=== PATIENT | male | born 1950 | race Caucasian/White ===

== ENCOUNTER 2018-01-08 21:15 | Inpatient (IN) | payer MEDICARE, BC ==
[~2018-01-08] VITALS: Ht 182.9 cm; Wt 88.0 kg
--- NOTE | 2018-01-08 22:22 | NUR ---
MEDICALLY CLEARED BY DR CAMERON.
--- NOTE | 2018-01-08 22:23 | NUR ---
CALLED AMINAH ALEX TO EVAL PATIENT. ETA 30MIN
[2018-01-08] MEDS ORDERED: ONDA2VIA IJ (22:44)
[2018-01-08] MEDS ORDERED: VALS40TA4 PO (22:44)
[2018-01-08] MEDS ORDERED: ACET325T53 PO (22:44)
[2018-01-08] MEDS ORDERED: CLON0.5T12 PO (22:44)
[2018-01-08] MEDS ORDERED: HYDR-3974 PO (22:44)
[2018-01-08] MEDS ORDERED: HYDR-4075 PO (22:44)
[2018-01-08] MEDS ORDERED: HEPA0.5D3 IJ (22:44)
[2018-01-08] MEDS ORDERED: LEVE500T20 PO (22:44)
[2018-01-08] MEDS ORDERED: LACT1CAP39 PO (22:44)
[2018-01-08] MEDS ORDERED: ASPI-605 PO (22:44)
[2018-01-08] MEDS ORDERED: TRAZ-182 PO (22:44)
[2018-01-08] MEDS ORDERED: ATOR10TA PO (22:44)
[2018-01-08] MEDS ORDERED: ATEN50TA PO (22:44)
[2018-01-08] MEDS ORDERED: ESCI10TA PO (22:44)
[2018-01-08] MEDS ORDERED: LORA0.5T PO (22:44)
[2018-01-08] MEDS ORDERED: PANT40TA4 PO (22:44)
[2018-01-08] MEDS ORDERED: LOPE2TAB25 PO (22:44)
--- NOTE | 2018-01-08 23:05 | NUR ---
AMINAH ALEX FROM PET TEAM HERE TO EVAL PATIENT
--- NOTE | 2018-01-08 23:10 | NUR ---
PLACED ON 5150 HOLD FOR GD BY AMINAH ALEX [facility]
--- NOTE | 2018-01-08 23:28 | NUR ---
[facility]SA SERVILLANCE OBTAIN AND SENT TO LAB. BELONGING LIST COMPLETED
--- NOTE | 2018-01-08 23:58 | NUR ---
TRANSFERED TO MHU VIA WHEELCHAIR WITH NO DISTRESS NOTED
[2018-01-09] VITALS: BP 131/77
[2018-01-09] MEDS ORDERED: TEMAZEPAM 7.5 MG CAPSULE PO PRN (01:00)
[2018-01-09] MEDS ORDERED: ACETAMINOPHEN 325 MG TABLET PO PRN ×2 (01:00→10:30)
[2018-01-09] MEDS ORDERED: MAGNESIUM HYDROXIDE 30 ML LIQUID UDC PO PRN ×2 (01:00→10:30)
[2018-01-09] MEDS ORDERED: MAG HYDROX/AL HYDROX/SIMETH 30 ML LIQUID UDC PO PRN (01:00)
--- NOTE | 2018-01-09 02:16 | NUR ---
ADMISSION NOTES: 67 Y.O. MALE BROUGHT TO MHU FROM ER VIA WHEELCHAIR, ACCOMPANIED BY ER STAFF, Pt ON A 5150 HOLD FOR GRAVE DISABILITY. 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 Pt CONTINUES TO BE DEPRESSED AND UNABLE TO RECEIVE CARE FROM AND CAREGIVER AT HOME.RN CONCURS WITH THE HOLD. ADVISEMENT AND PATIENT RIGHTS HANDBOOK GIVEN. UPON FACE TO FACE ASSESSMENT, Pt APPEARS TO REFLECT SOME DETAILS WRITTEN ON THE HOLD. Pt IS A/O X 3, AND COOPERATIVE WITH ASSESSMENT. Pt IS NOTED SLIGHTLY LETHARGIC DUE TO BEING GIVEN ATIVAN PO PRN AT THE PREVIOUS HOSPITAL HE WAS ADMITTED IN PRIOR TO TRANSFERRING TO [facility]. SLIGHT CONFUSION IS NOTED, Pt IS AWARE OF THE SITUATION BUT FORGETFUL AT TIMES AND SPACES OUT AT TIMES DURING CONVERSATION. Pt REPORTS THAT HE IS FEELING DEPRESSED BUT UNABLE TO RATE DEPRESSION ON A 0-10 RATING SCALE. Pt DENIES SUICIDAL IDEATION, DENIES ANY AUDITORY OR VISUAL HALLUCINATIONS. Pt AGREED TO CONTRACT FOR SAFETY INSIDE THE HOSPITAL. Pt REPORTS BEING TIRED AND SLEEP, STATING, "THEY'VE BEEN PUTTING ME ON SO MUCH MEDICATIONS SO I CAN BARELY STAND AND WALK. I FEEL TIRED ALL THE TIME." Pt CONFIRMS THE UNINTENTIONAL OVERDOSE IN OCTOBER 2017, BUT WAS AMBIVALENT WITH HIS RESPONSES WHEN ASKED REGARDING THE DETAILS OF THE EVENT. Pt EXHIBITS FLAT AFFECT AND POOR EYE CONTACT, AND IS SOMEWHAT CIRCUMSTANTIAL IN THOUGHT PROCESS. Pt STATES THAT HE IS WILLING TO ACCEPT TREATMENT, AND WILL PARTICIPATE WITH THE PROGRAM IN MHU. Pt APPEARS TO BE UNKEMPT IN APPEARANCE, BUT SKIN IS INTACT. Pt GAVE VERBAL PERMISSION TO CALL HIS REGARDING DETAILS OF HIS HOSPITALIZATION. WAS PRESENT IN THE EMERGENCY ROOM WITH Pt PRIOR TO BEING ADMITTED TO MHU. NURSE ATTEMPTED TO CALL , NO RESPONSE AND UNABLE TO LEAVE VOICEMAIL. WILL ATTEMPT TO CALL AGAIN AT A MORE APPROPRIATE TIME. DR. SNIDER AND DR. BRAVO NOTIFIED OF ADMISSION, ORDERS RECEIVED. Pt ORIENTED TO UNIT, AND EDUCATED ON UNIT RULES. NO CONTRABANDS OR BELONGINGS DURING ADMISSION. VITAL SIGNS STABLE, DENIES PAIN, NO PRN MEDS GIVEN. Pt ASSISTED BY NURSING STAFF TO USE THE BATHROOM DUE TO SLIGHTLY UNSTEADY GAIT, ASSISTED TO BED. Pt IS SLEEPING, NO AGGRESSIVE BEHAVIORS NOTED.
[2018-01-09 06:25] VITALS: BP 128/81
--- NOTE | 2018-01-09 06:37 | NUR ---
Pt SLEPT UNINTERRUPTED, WOKE UP THIS MORNING AND AGREED TO TAKE A SHOWER. Pt WAS WALKING AROUND THE UNIT WHEN HE REPORTED FEELING DIZZY. Pt STATED, "I CAN'T BELIEVE HOW DIZZY I AM RIGHT NOW." NURSE ASSISTED Pt BACK TO HIS ROOM AND TO HIS BED TO PREVENT ANY INJURY TO THE Pt. VITAL SIGNS WERE TAKEN, BLOOD PRESSURE WAS NORMAL AT 128/81, BUT DECREASED HEART RATE OF 48. ASSESSED Pt FOR MORE S/S, Pt ONLY COMPLAINED OF DIZZINESS. DENIES CHEST PAINS, DENIES SHORTNESS OF BREATH, LEVEL OF CONSCIOUSNESS STILL THE SAME BASELINE DURING ADMISSION. HEAD OF BED AND LEGS BOTH ELEVATED, GIVEN WATER AND APPLE JUICE. NOTIFIED CHARGE NURSE, WILL ENDORSE TO DAY SHIFT NURSE TO NOTIFY CITY ADMINISTRATOR FOR ANY FURTHER ORDERS.
[2018-01-09 07:30] VITALS: BP 120/84
[2018-01-09] MEDS ORDERED: Medication Not On Formulary EA (Loperamide Hcl (Loperamide) 2 MG) PO PRN (10:30)
[2018-01-09] MEDS ORDERED: HYDROCODONE/APAP 5-325MG TABLET PO PRN (10:30)
[2018-01-09] MEDS ORDERED: Z GUARD REMEDY PASTE 57 GM TUBE TOP PRN (10:30)
[2018-01-09] MEDS ORDERED: ONDANSETRON HCL 4 MG TABLET PO PRN (10:30)
[2018-01-09] MEDS ORDERED: hydrALAZINE HCL 10 MG TABLET PO PRN (10:30)
[2018-01-09] MEDS: DULOXETINE 30 MG CAPSULE.DR PO SCH ×2 (12:11→17:22)
[2018-01-09] MEDS: CLONAZEPAM 0.5 MG TABLET PO SCH ×2 (12:11→17:22)
--- NOTE | 2018-01-09 16:30 | NUR ---
PT COMPLAINED OF URINE RETENTION AND UNABLE TO PEE, BLADDER SCAN DONE. 413 ML NOTICED PT ENCOURAGED TO TRY AND USE THE BATHROOM , PASSED BLADDER RE-SCANNED 110ML IN BLADDER. PT WAS INSTRUCTED TO TRY TO PASS URINE/ EMPTY BLADDER AND IF ANY DISCOMFORTS OCCUR TO INFORM THE NURSE. PT TO BE FOLLOWED AND MONITORED
[2018-01-09 17:14] VITALS: BP 128/85
[2018-01-09] MEDS: LEVETIRACETAM 500 MG TABLET PO SCH (17:22)
[2018-01-09] MEDS: ACIDOPHILUS/BULGARICUS CHEW TAB PO SCH (17:22)
[2018-01-09 20:19] VITALS: BP 141/85
[2018-01-09] MEDS: ATORVASTATIN 10 MG TABLET PO SCH (20:49)
[2018-01-09] MEDS: HEPARIN SODIUM,PORCINE 5,000 UNITS/ML VIAL SQ SCH (20:51)
[2018-01-10] MEDS: PANTOPRAZOLE SODIUM 40 MG TABLET.DR PO SCH (06:02)
[2018-01-10 06:45] VITALS: BP 154/81
--- NOTE | 2018-01-10 06:45 | NUR ---
Pt slept comfortably at night, total of 8.15 hrs. Meds given as ordered. No acute distress noted. No c/o pain or discomfort. This morning, pt has elevated BP 154/81, HR 50. Apresoline PRN not given because there is no parameters and HR is low. Asymptomatic at this time, no c/o dizziness. Will notify MD. Safety measures maintained. Continue to monitor. Will endorse to day shift RN.
[2018-01-10 07:07] LABS: BASOPHILS # (AUTO) 0.1 K/uL (0.0-8.0); EOSINOPHILS # (AUTO) 0.3 K/uL (0.0-0.7); EOSINOPHILS % (AUTO) 4.5 % (0.0-7.0); HEMATOCRIT 44.4 % (36.7-47.1); HEMOGLOBIN 15.2 g/dL (12.5-16.3); LYMPHOCYTES # (AUTO) 1.8 K/uL (20.0-40.0); LYMPHOCYTES % (AUTO) 24.7 % (20.5-51.5); MEAN CORPUSCULAR HEMOGLOBIN 31.3 uug (23.8-33.4); MEAN CORPUSCULAR HGB CONC 34 g/dL (32.5-36.3); MEAN CORPUSCULAR VOLUME 91.4 fL (73.0-96.2); MONOCYTES # (AUTO) 0.5 K/uL (2.0-10.0); MONOCYTES % (AUTO) 6.7 % (0.0-11.0); NEUTROPHILS # (AUTO) 4.6 K/uL (1.8-8.9); NEUTROPHILS % (AUTO) 63.1 % (38.5-71.5); PLATELET COUNT (AUTO) 273 K/uL (152-348); RED BLOOD CELL COUNT(AUTO) 4.85 MIL/uL (4.06-5.63); WHITE BLOOD COUNT (AUTO) 7.3 K/uL (3.6-10.2)
[2018-01-10 07:26] LABS: CREATININE 1.3 mg/dL (0.6-1.3); MAGNESIUM 1.7 mg/dL (1.8-2.4); PHOSPHOROUS 3.7 mg/dL (2.5-4.9); POTASSIUM 4.9 mmol/L (3.5-5.1)
[2018-01-10 07:30] VITALS: BP 150/84
[2018-01-10] MEDS: LEVETIRACETAM 500 MG TABLET PO SCH ×2 (08:29→16:56)
[2018-01-10] MEDS: DULOXETINE 30 MG CAPSULE.DR PO SCH ×2 (08:29→16:57)
[2018-01-10] MEDS: ACIDOPHILUS/BULGARICUS CHEW TAB PO SCH ×2 (08:30→16:57)
[2018-01-10] MEDS: VALSARTAN 40 MG TABLET PO SCH (08:30)
[2018-01-10] MEDS: CLONAZEPAM 0.5 MG TABLET PO SCH ×2 (08:30→16:57)
[2018-01-10] MEDS: ASPIRIN EC 81 MG TABLET.DR PO SCH (08:30)
[2018-01-10] MEDS: HEPARIN SODIUM,PORCINE 5,000 UNITS/ML VIAL SQ SCH ×2 (08:32→20:29)
[2018-01-10] MEDS ORDERED: ATENOLOL 50 MG TABLET PO SCH (09:00)
--- NOTE | 2018-01-10 14:46 | NUR ---
Initial Discharge Instructions: Patient currently resides at home with his and adult son [[address], [place] [address]; [phone]]. Per pt, he would like to return home upon discharge. Spoke with patient's , Lucy ([phone]) who states she is hopeful that the patient can return home with Home Health when ready for discharge. SW will continue to collaborate with pt, family, and MD regarding most appropriate discharge plans for this patient. SW will form a safe and proper discharge plan.
[2018-01-10 15:00] VITALS: BP 143/80
[2018-01-10] MEDS ORDERED: MAGNESIUM OXIDE 400 MG TABLET PO ONE (15:30)
[2018-01-10] MEDS: busPIRone 5 MG TABLET PO SCH (17:09)
--- NOTE | 2018-01-10 17:09 | NUR ---
Gps/Assembler [employer]- Complained he has not urinated since this am. Claimed he ate lunch , refused breakfast, encouraged to drink fluids, ,compliant with his medications . No bladder distention noted, no bladder discomfort, encouraged to go to the bathroom to void, drink plenty of water.Verbalized nothing will help him when medications reviewed, motivation poor.
[2018-01-10 20:00] VITALS: BP 125/89
[2018-01-10] MEDS: ATORVASTATIN 10 MG TABLET PO SCH (20:28)
[2018-01-10] MEDS: risperiDONE-M 0.5 MG TAB.RAPDIS PO SCH (20:28)
--- NOTE | 2018-01-10 20:30 | NUR ---
PT'S A/A/O X2-3,ON BED REST COMFORTABLY,DENIED OF PAIN.PT COMPLIANT WITH MEDICATIONS WELL.OFFERED PT FOR SOME SANDWICH,PT STATED THAT"I JUST HAD IT".KEPT COMFORT.CONTINUED MONITORING TO PT.
--- NOTE | 2018-01-10 21:30 | NUR ---
PT'S COMFORTABLE ON BED,DENIED OF PAIN OR ANY DISCOMFORT.ENCOURAGED PT TO URINATE AT THIS TIME DUE TO PT'S UNABLE TO REMEMBER WHEN IT'S THE LAST TIME OF URINATION.OFFERED A URINAL TO PT,PT'S UNABLE TO URINATE ON BED OR AT THE BEDSIDE.ASSISTED PT TO BATHROOM,STEADY GAIT NOTED.TOOK 15 MINUTES FOR PT TO URINATED ~ 500 ML OF URINE.OFFERED CRANBERRY JUICE TO PT AND HE TOLERATED WELL NOTED.CLOSELY MONITORING TO PT.BED ALARM'S ON.
--- NOTE | 2018-01-11 06:20 | NUR ---
Encouraged pt to go to bathroom for urination,pt's cooperative and able to urinate x1.pt refused to take a shower at this time,stated to me and charge nurse that"I'm not ready yet,will do it later".kept comfort to pt.no distress noted in the shift.pt remained free from injury and able to sleep for 10 hours.
[2018-01-11] MEDS: PANTOPRAZOLE SODIUM 40 MG TABLET.DR PO SCH (06:39)
[2018-01-11 07:30] VITALS: BP 120/81
[2018-01-11] MEDS: DULOXETINE 30 MG CAPSULE.DR PO SCH (08:18)
[2018-01-11] MEDS: busPIRone 5 MG TABLET PO SCH ×3 (08:18→17:48)
[2018-01-11] MEDS: LEVETIRACETAM 500 MG TABLET PO SCH ×2 (08:18→17:48)
[2018-01-11] MEDS: ACIDOPHILUS/BULGARICUS CHEW TAB PO SCH ×2 (08:18→17:48)
[2018-01-11] MEDS: CLONAZEPAM 0.5 MG TABLET PO SCH ×2 (08:18→20:01)
[2018-01-11] MEDS: ASPIRIN EC 81 MG TABLET.DR PO SCH (08:18)
[2018-01-11] MEDS: VALSARTAN 40 MG TABLET PO SCH (08:19)
[2018-01-11] MEDS: HEPARIN SODIUM,PORCINE 5,000 UNITS/ML VIAL SQ SCH ×2 (08:20→20:00)
--- NOTE | 2018-01-11 12:01 | NUR ---
GPS/RN- patient voided at this time, noted in bathroom , unable to collect urine at this time patient had already voided in toilet.
[2018-01-11] MEDS: SERTRALINE HCL 50 MG TABLET PO SCH (12:19)
[2018-01-11 16:27] VITALS: BP 120/74
[2018-01-11] MEDS: risperiDONE-M 0.5 MG TAB.RAPDIS PO SCH (20:01)
[2018-01-11] MEDS: ATORVASTATIN 10 MG TABLET PO SCH (20:01)
[2018-01-11 20:30] VITALS: BP 122/80
[2018-01-12] MEDS: PANTOPRAZOLE SODIUM 40 MG TABLET.DR PO SCH (06:48)
[2018-01-12 07:30] VITALS: BP 135/79
[2018-01-12] MEDS ORDERED: LOPERAMIDE HCL 2 MG CAPSULE PO PRN (07:45)
[2018-01-12] MEDS: LOPERAMIDE HCL 2 MG CAPSULE PO PRN ×2 (08:39→13:51)
[2018-01-12] MEDS: ASPIRIN EC 81 MG TABLET.DR PO SCH (08:39)
[2018-01-12] MEDS: DULOXETINE 30 MG CAPSULE.DR PO SCH (08:39)
[2018-01-12] MEDS: ACIDOPHILUS/BULGARICUS CHEW TAB PO SCH ×2 (08:39→16:20)
[2018-01-12] MEDS: busPIRone 5 MG TABLET PO SCH ×3 (08:39→16:20)
[2018-01-12] MEDS: HEPARIN SODIUM,PORCINE 5,000 UNITS/ML VIAL SQ SCH ×2 (08:40→21:26)
[2018-01-12] MEDS: VALSARTAN 40 MG TABLET PO SCH (08:44)
[2018-01-12] MEDS: LEVETIRACETAM 500 MG TABLET PO SCH ×2 (08:44→16:20)
[2018-01-12] MEDS: LORAZEPAM 0.5 MG TABLET PO PRN (11:42)
[2018-01-12] MEDS: SERTRALINE HCL 50 MG TABLET PO SCH (12:34)
--- NOTE | 2018-01-12 15:00 | NUR ---
Patient complaining of diarrhea as per medical technicians. SENIOR SUPPORT ANALYST Alistair ordered imodium 2mg PRN every 4hrs. Urine collected, sent to laboratory. awaiting result. Combative and agitation noted. Ativan 0.5 mg PRN given with good effect. will continue monitor
[2018-01-12 16:07] LABS: *BILIRUBIN,URIN NEGATIVE (NEGATIVE); *BLOOD, URINE NEGATIVE (NEGATIVE); *CLARITY,URINE CLEAR (CLEAR); *COLOR,URINE YELLOW (YELLOW); *KETONES,URINE NEGATIVE (NEGATIVE); *PROTEIN,URINE TRACE (NEGATIVE); *UROBILINOGEN,URINE 0.2 E.U./dl (NORMAL); LEUKOCYTE ESTERASE ,URINE NEGATIVE (NEGATIVE); NITRITE, URINE NEGATIVE (NEGATIVE); UGLUCOSE NEGATIVE (NEGATIVE)
[2018-01-12 16:33] LABS: MUCUS,URINE MODERATE /LPF (0-FEW); WBC,URINE 0-3 /HPF (0-3)
[2018-01-12 16:54] VITALS: BP 94/57
[2018-01-12 20:00] VITALS: BP 99/65
[2018-01-12] MEDS: ATORVASTATIN 10 MG TABLET PO SCH (21:23)
[2018-01-12] MEDS: CLONAZEPAM 0.5 MG TABLET PO SCH (21:23)
[2018-01-12] MEDS: risperiDONE-M 0.5 MG TAB.RAPDIS PO SCH (21:23)
[2018-01-13] MEDS: PANTOPRAZOLE SODIUM 40 MG TABLET.DR PO SCH (06:26)
[2018-01-13 07:30] VITALS: BP 124/71
[2018-01-13] MEDS: HYDROCORTISONE 1% RECTAL CREAM 28.35 GM TUBE RC SCH ×2 (09:00→17:00)
[2018-01-13] MEDS: VALSARTAN 40 MG TABLET PO SCH (10:07)
[2018-01-13] MEDS: LEVETIRACETAM 500 MG TABLET PO SCH ×2 (10:07→17:44)
[2018-01-13] MEDS: busPIRone 5 MG TABLET PO SCH ×4 (10:07→17:44)
[2018-01-13] MEDS: ACIDOPHILUS/BULGARICUS CHEW TAB PO SCH ×2 (10:07→17:44)
[2018-01-13] MEDS: ASPIRIN EC 81 MG TABLET.DR PO SCH (10:07)
[2018-01-13] MEDS: DULOXETINE 30 MG CAPSULE.DR PO SCH (10:07)
[2018-01-13] MEDS: HEPARIN SODIUM,PORCINE 5,000 UNITS/ML VIAL SQ SCH ×2 (10:15→20:19)
[2018-01-13] MEDS: SERTRALINE HCL 50 MG TABLET PO SCH (13:16)
[2018-01-13 16:45] VITALS: BP 112/68
--- NOTE | 2018-01-13 18:54 | NUR ---
GPS/RN- [address]00 [address] HELD, PATIENT LETHARGIC BUT AROUSABLE.
[2018-01-13 19:30] VITALS: BP 109/70
[2018-01-13] MEDS: ATORVASTATIN 10 MG TABLET PO SCH (20:18)
[2018-01-13] MEDS: risperiDONE-M 0.5 MG TAB.RAPDIS PO SCH (20:19)
[2018-01-13] MEDS: CLONAZEPAM 0.5 MG TABLET PO SCH (20:19)
[2018-01-14] MEDS: PANTOPRAZOLE SODIUM 40 MG TABLET.DR PO SCH (06:18)
--- NOTE | 2018-01-14 06:49 | NUR ---
Pt stated had BM x 1 last night, pt was seen coming from bathroom twice during shift. Pt is ambulatory. Compliant with meds. Slept 8.50 hrs. Refused am shower. Safety measures rendered.
[2018-01-14 07:30] VITALS: BP 118/73
[2018-01-14] MEDS: busPIRone 5 MG TABLET PO SCH ×2 (09:00→17:00)
[2018-01-14] MEDS: DULOXETINE 30 MG CAPSULE.DR PO SCH ×2 (09:00→20:27)
[2018-01-14] MEDS: HYDROCORTISONE 1% RECTAL CREAM 28.35 GM TUBE RC SCH ×2 (09:00→16:51)
[2018-01-14] MEDS: LEVETIRACETAM 500 MG TABLET PO SCH ×2 (09:59→17:03)
[2018-01-14] MEDS: ACIDOPHILUS/BULGARICUS CHEW TAB PO SCH ×2 (09:59→17:03)
[2018-01-14] MEDS: ASPIRIN EC 81 MG TABLET.DR PO SCH (09:59)
--- NOTE | 2018-01-14 10:19 | NUR ---
GPS/RN- Awilda held. patient complaining of dizziness, lethargic. vitals stable held Joanne at this time as well
[2018-01-14] MEDS: VALSARTAN 40 MG TABLET PO SCH (10:20)
[2018-01-14] MEDS: HEPARIN SODIUM,PORCINE 5,000 UNITS/ML VIAL SQ SCH ×2 (11:08→20:33)
[2018-01-14 16:00] VITALS: BP 122/66
[2018-01-14] MEDS: SERTRALINE HCL 50 MG TABLET PO SCH (17:03)
[2018-01-14 19:30] VITALS: BP 106/74
[2018-01-14] MEDS: ATORVASTATIN 10 MG TABLET PO SCH (20:27)
--- NOTE | 2018-01-14 22:00 | NUR ---
received to care, lying in bed, isolative, but pleasant upon approach. denies SI, or desire to harm self. no interactions with peers, but is able to make needs known. compliant with medications and staff direction. as of 2199, he appears to be asleep. no distress noted.
--- NOTE | 2018-01-15 06:47 | NUR ---
slept 10.5 hours, total. continues to sleep. was observed several times during the night in the bathroom. no distress noted.
[2018-01-15] MEDS: PANTOPRAZOLE SODIUM 40 MG TABLET.DR PO SCH (07:02)
[2018-01-15 07:30] VITALS: BP 149/83
[2018-01-15 07:39] LABS: BASOPHILS # (AUTO) 0.1 K/uL (0.0-8.0); BASOPHILS % (AUTO) 0.6 % (0.0-2.0); EOSINOPHILS # (AUTO) 0.3 K/uL (0.0-0.7); EOSINOPHILS % (AUTO) 3.8 % (0.0-7.0); HEMATOCRIT 47.4 % (36.7-47.1); HEMOGLOBIN 16.1 g/dL (12.5-16.3); LYMPHOCYTES # (AUTO) 2.4 K/uL (20.0-40.0); LYMPHOCYTES % (AUTO) 26.6 % (20.5-51.5); MEAN CORPUSCULAR HEMOGLOBIN 31.4 uug (23.8-33.4); MEAN CORPUSCULAR HGB CONC 34 g/dL (32.5-36.3); MEAN CORPUSCULAR VOLUME 92.3 fL (73.0-96.2); MONOCYTES # (AUTO) 0.5 K/uL (2.0-10.0); MONOCYTES % (AUTO) 6.2 % (0.0-11.0); NEUTROPHILS # (AUTO) 5.6 K/uL (1.8-8.9); NEUTROPHILS % (AUTO) 62.8 % (38.5-71.5); PLATELET COUNT (AUTO) 275 K/uL (152-348); RED BLOOD CELL COUNT(AUTO) 5.14 MIL/uL (4.06-5.63); WHITE BLOOD COUNT (AUTO) 8.9 K/uL (3.6-10.2)
[2018-01-15 07:43] LABS: CREATININE 1.4 mg/dL (0.6-1.3); POTASSIUM 4.9 mmol/L (3.5-5.1)
[2018-01-15] MEDS: ACIDOPHILUS/BULGARICUS CHEW TAB PO SCH ×2 (08:51→16:39)
[2018-01-15] MEDS: ASPIRIN EC 81 MG TABLET.DR PO SCH (08:51)
[2018-01-15] MEDS: busPIRone 5 MG TABLET PO SCH ×2 (08:52→16:39)
[2018-01-15] MEDS: LEVETIRACETAM 500 MG TABLET PO SCH ×2 (08:52→16:38)
[2018-01-15] MEDS: VALSARTAN 40 MG TABLET PO SCH (08:52)
[2018-01-15] MEDS: HEPARIN SODIUM,PORCINE 5,000 UNITS/ML VIAL SQ SCH (08:54)
[2018-01-15] MEDS: HYDROCORTISONE 1% RECTAL CREAM 28.35 GM TUBE RC SCH ×2 (09:00→16:39)
[2018-01-15 16:24] VITALS: BP 114/61
[2018-01-15] MEDS: SERTRALINE HCL 50 MG TABLET PO SCH (16:39)
--- NOTE | 2018-01-15 19:24 | NUR ---
pt stable throughout the day. pt seen by manpower development advisor angelo and had heparin and mom stopped due to verbalizign diarrhea. no diarrhea seen throughout the shift. pt participated in therapies and shows awareness of depression. pt denies any statement of SI. pt continues to stay in room because patient states he likes to be in the room. will endorse to shift coordinator nurse.
[2018-01-15 20:10] VITALS: BP 132/80
[2018-01-15] MEDS: DULOXETINE 30 MG CAPSULE.DR PO SCH (20:53)
[2018-01-15] MEDS: ATORVASTATIN 10 MG TABLET PO SCH (20:53)
--- NOTE | 2018-01-15 22:00 | NUR ---
received to care, lying in bed, isolative, but pleasant upon approach. denies SI, or desire to harm self. no interactions with peers, but is able to make needs known. compliant with medications and staff direction. as of 2199, he remains awake. no distress noted.
[2018-01-15] MEDS: LORAZEPAM 0.5 MG TABLET PO PRN (22:05)
--- NOTE | 2018-01-15 22:05 | NUR ---
PRN ativan given for anxiety.
--- NOTE | 2018-01-15 22:30 | NUR ---
appears to be asleep. no distress noted.
--- NOTE | 2018-01-16 06:00 | NUR ---
slept 7.5 hours, total. continues to sleep. no distress noted.
[2018-01-16] MEDS: PANTOPRAZOLE SODIUM 40 MG TABLET.DR PO SCH (06:35)
[2018-01-16 07:30] VITALS: BP 126/81
--- NOTE | 2018-01-16 08:15 | NUR ---
Discharge Note: Patient will be discharged back home with his [[address] [place] [address]; [phone]] via private transportation at 11am. Spoke with patients , Lucy ([phone]) who has agreed to provide transportation and is aware and agreeable with discharge plans. Patient is aware and agreeable with discharge plans. Patient will continue to follow-up with his Primary Care Physician, Dr. Ministerio Fernandez [[address] [place] [address]; [phone]]. Patient was accepted to the Adult Partial Hospitalization Program at [facility] ([address] [place] [address]; [phone]], and has his intake appointment on January, at 8:00am. Patient will be assigned a Psychiatrist while he is in the program. Patient was also provided with a list of Medicare-accepting Psychiatrists in his area. Patient was provided with a brief substance abuse intervention and was referred to [facility] ([phone]); [facility] National Helpline ( ); and [facility] [[address], [place]; [phone]]. Patient was given outpatient mental health referrals to [facility] [[address], [place] [address]; [phone]]; [facility] Crisis Line ([phone]); [place] [facility]icide Prevention [facility]eline ( ).
[2018-01-16] MEDS: HYDROCORTISONE 1% RECTAL CREAM 28.35 GM TUBE RC SCH (09:00)
[2018-01-16 09:07] VITALS: BP 126/81
[2018-01-16] MEDS: VALSARTAN 40 MG TABLET PO SCH (09:07)
[2018-01-16] MEDS: ACIDOPHILUS/BULGARICUS CHEW TAB PO SCH (09:07)
[2018-01-16] MEDS: LEVETIRACETAM 500 MG TABLET PO SCH (09:07)
[2018-01-16] MEDS: ASPIRIN EC 81 MG TABLET.DR PO SCH (09:07)
[2018-01-16] MEDS: busPIRone 5 MG TABLET PO SCH (09:07)
--- NOTE | 2018-01-16 11:01 | NUR ---
Pt is alert and oriented x 3, calm and pleasant on approach. No agitation no behavioral issues. Pt denies S.I, denies hallucination. Pt's family ( and son) is here to pick him up. Discharge instructions given to the patient and the family. They verbalize understanding. all forms signed, belonging returned.
== END 2018-01-16 11:13 | disposition home or self-care (01) | DRG 881 ==
LOC: ER 21:18 → GPS 23:26
PROVIDERS: ADMIT Psychiatry & Neurology Psychosomatic Medicine; ATTEND Psychiatry & Neurology Psychosomatic Medicine
DX: F32.9 Major depressive disorder, single episode, unspecified (principal); I11.0 Hypertensive heart disease with heart failure; K57.92 Diverticulitis of intestine, part unspecified, without perforation or abscess without bleeding; I50.9 Heart failure, unspecified; G31.84 Mild cognitive impairment of uncertain or unknown etiology; Z73.6 Limitation of activities due to disability; I25.10 Atherosclerotic heart disease of native coronary artery without angina pectoris; I25.2 Old myocardial infarction; E03.9 Hypothyroidism, unspecified; E78.5 Hyperlipidemia, unspecified; Z79.82 Long term (current) use of aspirin; Z79.899 Other long term (current) drug therapy; F29 Unspecified psychosis not due to a substance or known physiological condition; R00.1 Bradycardia, unspecified; Z86.19 Personal history of other infectious and parasitic diseases; Z86.73 Personal history of transient ischemic attack (TIA), and cerebral infarction without residual deficits; F19.10 Other psychoactive substance abuse, uncomplicated; Z91.14 Patient's other noncompliance with medication regimen; Z80.0 Family history of malignant neoplasm of digestive organs; Z95.5 Presence of coronary angioplasty implant and graft; Z87.891 Personal history of nicotine dependence; G89.29 Other chronic pain; G47.00 Insomnia, unspecified; I25.5 Ischemic cardiomyopathy
CPT/HCPCS: 36415; 83735; 84100; 85025; 93005; A4663; J1644